=== PATIENT | female | born 1985 ===

== ENCOUNTER 2016-08-10 18:04 | Emergency (ER) | payer SELFPAY ==
[2016-05-18 12:00] VITALS: BMI 29.9
[2016-08-10 19:11] LABS: URINE BILIRUBIN NEGATIVE (NEGATIVE); URINE BLOOD NEGATIVE (NEGATIVE); URINE COLOR STRAW (YELLOW); URINE GLUCOSE (UA) NEG (Normal); URINE KETONE NEGATIVE (NEGATIVE); URINE LEUKOCYTE ESTERASE NEG Leu/uL (Negative); URINE PROTEIN NEGATIVE (NEGATIVE); URINE UROBILINOGEN 0.2-1.0 mg/dL (0.2-1.0); WBC URINE < 1 /hpf (0-5)
--- NOTE | 2016-08-10 19:38 | OBHP ---
Datetime: 08/10/2016 19:32 IP Adm Impression: Term, intrauterine IP Chief Complaint Other: urinary urgency IP Admit Plan: Observation/Evaluation; Discharge home Admit Comment, IP Provider: Patient is a @ 21 wks complaining of urinary frequency, no vagin al bleeding, no pain, +FM. Patient denies any medical problems, no allergies, no surgeries, no other issues. +FHR = 140s, no contractions on the monitor. Urine sent to pathology, shows no signs of urine infection. Will discharge patient, to follow up in clinic this week. Labor precautions given Pelvic Type - PN: Adequate Extremities - PN: Normal Abdomen - PN: Normal Back - PN: Normal Breast - PN: Normal Lungs - PN: Normal Heart - PN: Normal Thyroid - PN: Normal Neurologic - PN: Normal HEENT - PN: Normal General - PN: Normal FHR - Baseline A Provider: 140 Vital Signs Provider: Reviewed; Within Normal Limits NICHD Decel Fetus A IP Provider: None Genitourinary Exam: Normal DTRs - PN: Normal
== END 2016-08-10 23:00 | disposition home or self-care (01) ==
LOC: H.EROB2 18:04
DX: O99.89 Other specified diseases and conditions complicating pregnancy, childbirth and the puerperium (principal); R35.0 Frequency of micturition; Z3A.21 21 weeks gestation of pregnancy

== ENCOUNTER 2016-12-03 17:12 | Emergency (ER) | payer SELFPAY ==
[2016-12-03 21:57] VITALS: BMI 28.3
[2016-12-04 00:56] VITALS: BP 108/68; PULSE 74; O2SAT 99
== END 2016-12-03 20:15 | disposition home or self-care (01) ==
LOC: H.EROB2 17:12
DX: O26.93 Pregnancy related conditions, unspecified, third trimester (principal); Z3A.37 37 weeks gestation of pregnancy; Z04.3 Encounter for examination and observation following other accident; O47.1 False labor at or after 37 completed weeks of gestation; W10.9XXA Fall (on) (from) unspecified stairs and steps, initial encounter; Y93.9 Activity, unspecified

== ENCOUNTER 2016-12-13 09:23 | Emergency (ER) | payer SELFPAY ==
--- NOTE | 2016-12-13 10:35 | OBHP ---
Datetime: 12/13/2016 10:03 IP Adm Impression: Term, intrauterine ; No Active Labor; Missed IP Admit Plan: Observation/Evaluation; Discharge home Admit Comment, IP Provider: 30 y/o @ 38.6 weeks presents reporting decreased FM and vaginal spo tting. Pt reports being out late last night and upon waking up noticed decreased FM. Pt also reports an episode of vaginal spotting but it was darker blood and not fresh/bright red. No other complaints. Currently reports good fm. Denies LOF/CTX. ROS: negative PE: as above A/P: 30 @ 38.6 weeks IUP rule out labor -pt checked, currently 1/thick/high -reactive NST -kick counts reviewed -pt returning home with f/u appt on 12/[address] Bogdan Hanna pt seen and case discussed with Dr. Zeeshan Hanna MD PGY2 @ 10:15am Addendum by Dr. Byers: Patient evaluated with the resident and I agree with the above. The patient is a @ 38.6 wks, rule out labor. Patient has vaginal spotting, decreased movement, no contraction pain. HIO=904 mod karley, +accels, no decels, TOCO = ctxning q 2-8 mins. Patient 1/thick/hig h, not in active labor. FHR=reactive, will discharge home, labor precautions given Pelvic Type - PN: Adequate Extremities - PN: Normal Abdomen - PN: Normal Back - PN: Normal Breast - PN: Normal Lungs - PN: Normal Heart - PN: Normal Thyroid - PN: Normal Neurologic - PN: Normal HEENT - PN: Normal General - PN: Normal Presentation-Admit: Vertex FHR - Baseline A Provider: 130s IP Hx Assessment: The History has been Reviewed and is Current EGA AdmitDate IP: 38.6 Vital Signs Provider: Reviewed; Within Normal Limits IP Chief Complaint: Decreased movement NICHD Variability Prov Fetus A: Moderate 6-25bpm NICHD Accel Fetus A IP Provider: 15X15 FHR Category Provider Fetus A: Category I NICHD Decel Fetus A IP Provider: None Dilatation, Provider: 1 Effacement, Provider: thick Station, Provider: high Genitourinary Exam: Normal DTRs - PN: Normal Datetime: 12/03/2016 18:21 IP Chief Complaint Other: fell on her back Comments, ACOG Physical Exam: back: small contusion 3x3 lower back
--- NOTE | 2016-12-13 10:37 | OBDCSUM ---
Datetime: 12/13/2016 10:24 Discharged to, Provider: Home Follow up at, Provider: clinic Disch Instr Activity: Normal activity Disch Instr Diet: Regular Discharge Instructions, Provider: Routine instructions given Discharge Diagnosis, Provider: False Labor - Undelivered Discharge Time: 12/13/2016 10:35 Follow up in weeks, Provider: 1 day Disch Referrals: None Contraception discussed, Prov: Yes Disch Activity Restrictions: No lifting; No sexual activity; Nothing in vagina - [place], tampon s, douche
[2016-12-13 14:24] VITALS: BP 119/63; PULSE 57; RESP 18; TEMP 98.1
== END 2016-12-13 10:35 | disposition home or self-care (01) ==
LOC: H.EROB2 09:23 → H.L&D 10:18 → H.EROB2 10:35
DX: O47.1 False labor at or after 37 completed weeks of gestation (principal); Z3A.39 39 weeks gestation of pregnancy

== ENCOUNTER 2016-12-15 08:48 | Inpatient (IN) | payer MEDICAID, SELFPAY ==
[2016-12-15 09:06] VITALS: BMI 32.8
[2016-12-15] MEDS: Lactated Ringer's 1,000 ML IV SCH ×2 (09:25→10:25)
--- NOTE | 2016-12-15 09:36 | OBHP ---
Datetime: 12/15/2016 09:27 IP Adm Impression: Term, intrauterine ; No Active Labor IP Admit Plan: Observation/Evaluation Admit Comment, IP Provider: yo IUP at 39w c/cxt q10m for 4h. No SROM. no VB. +FM edc dec 21 care: [facility] - GBS Neg 1h GTT elevated; 3H negative PMH: denies PSH: denies NKA PSOH: denies msoking ETOH drugs POBGYNH: x 1 ( at 10yo of leukemia); spont ab x 1 A: IUP at 39w nonractive tracing PLAN: IVF observe Pelvic Type - PN: Adequate Extremities - PN: Normal Abdomen - PN: Normal Back - PN: Normal Breast - PN: Not Done Lungs - PN: Normal Heart - PN: Normal Thyroid - PN: Normal Neurologic - PN: Normal HEENT - PN: Normal General - PN: Normal Presentation-Admit: Vertex IP Fetus A Comments: Sono VTX FHR - Baseline A Provider: 140 Membranes, Provider: Intact Contraction Comments Provider: + Pool Provider: Negative EGA AdmitDate IP: 39.1 Vital Signs Provider: Reviewed; Within Normal Limits IP Chief Complaint: Uterine contractions NICHD Variability Prov Fetus A: Minimal - Undetectable to <5bpm NICHD Accel Fetus A IP Provider: 10X10 FHR Category Provider Fetus A: Category II NICHD Decel Fetus A IP Provider: None Dilatation, Provider: FT Effacement, Provider: long Station, Provider: high Genitourinary Exam: Normal DTRs - PN: Normal
--- NOTE | 2016-12-15 11:23 | OBADHP ---
Datetime: 12/15/2016 11:20 Admit Comment, IP Provider: luis IUP at 39w c/cxt q10m for 4h. No SROM. no VB. +FM...more ctx whiel ni L_D edc dec 21 care: [facility] - GBS Neg 1h GTT elevated; 3H negative PMH: denies PSH: denies NKA PSOH: denies msoking ETOH drugs POBGYNH: x 1 ( at 10yo of leukemia); spont ab x 1 A: IUP at 39w Active labor PLAN: Admit to L_D...pain managment, labor, delivery and discussed Pelvic Type - PN: Adequate Extremities - PN: Normal Abdomen - PN: Normal Back - PN: Normal Breast - PN: Not Done Lungs - PN: Normal Heart - PN: Normal Thyroid - PN: Normal Neurologic - PN: Normal HEENT - PN: Normal General - PN: Normal Presentation-Admit: Vertex FHR - Baseline A Provider: 130 Membranes, Provider: Intact Pool Provider: Negative IP Hx Assessment: The History has been Reviewed and is Current Vital Signs Provider: Reviewed; Within Normal Limits IP Chief Complaint: Uterine contractions NICHD Variability Prov Fetus A: Moderate 6-25bpm NICHD Accel Fetus A IP Provider: 15X15 FHR Category Provider Fetus A: Category I NICHD Decel Fetus A IP Provider: None Dilatation, Provider: 3 Effacement, Provider: 80 Station, Provider: --2 Genitourinary Exam: Normal DTRs - PN: Normal EGA AdmitDate IP: 39.1 IP Adm Impression: Term, intrauterine ; Active labor IP Admit Plan: Admit to unit; Initiate labor protocol Datetime: 12/15/2016 09:27 IP Fetus A Comments: Sono VTX Contraction Comments Provider: + Datetime: 12/03/2016 18:21 IP Chief Complaint Other: fell on her back Comments, ACOG Physical Exam: back: small contusion 3x3 lower back
[2016-12-15 11:52] LABS: HEMOGLOBIN 12.3 g/dL (12.0-16.0); MEAN CELL VOLUME 86.4 fl (81.0-99.0); MEAN CORPUSCULAR HEMOGLOBIN 28.5 pg (27.0-31.0); RBC 4.32 Mil/uL (3.80-5.20); RED CELL DISTRIBUTION WIDTH 15.4 % (11.5-14.5); WHITE BLOOD COUNT 12.7 K/uL (4.8-10.8)
--- NOTE | 2016-12-15 13:24 | OBPN ---
Datetime: 12/15/2016 13:14 IP Progress Impression: Normal progression of labor; Reassuring heart rate IP Informed Consent Obtain: Vaginal Delivery; Risks, Benefits and Alternatives Discussed IP Procedures: Artificial ROM IP Progress Plan: Continue present management; Augmentation Pool Provider: Positive Membranes, Provider: Ruptured Amniotic Fluid Color, Provider: Clear Contraction Comments Provider: 3-4m FHR - Baseline A Provider: 130 Presentation-Admit: Vertex IP Progress Note Comment: She feels CTX A: LAtent phase of labor PLAN: AROM clear fluid for augmentaiotn (discused with pt before AROM)..start Pitocin augmentatoin NICHD Accel Fetus A IP Provider: 15X15 FHR Category Provider Fetus A: Category I NICHD Variability Prov Fetus A: Moderate 6-25bpm Dilatation, Provider: 3 Effacement, Provider: 90 Station, Provider: -2 NICHD Decel Fetus A IP Provider: None Datetime: 12/15/2016 11:20 Vital Signs Provider: Reviewed; Within Normal Limits Datetime: 12/15/2016 09:27 IP Fetus A Comments: Sono VTX
[2016-12-15] MEDS ORDERED: Oxytocin 30 units/LR 500ML 30 U/500 ML BAG IV SCH ×3 (13:30→23:53)
[2016-12-15] MEDS ORDERED: Lactated Ringer's 1,000 ML IV SCH ×2 (15:00→16:00)
[2016-12-15] MEDS ORDERED: Bupivacaine HCl 0.25% PF (10 ml) Inj ONE (15:51)
[2016-12-15] MEDS ORDERED: Fentanyl/Bupivacaine HCl 250 ML EPI ONE (15:51)
[2016-12-15] MEDS ORDERED: ePHEDrine 50 mg/ml Inj ONE (16:15)
--- NOTE | 2016-12-15 17:31 | OBPN ---
Datetime: 12/15/2016 17:25 IP Progress Impression: Normal progression of labor; Reassuring heart rate IP Informed Consent Obtain: Vaginal Delivery; Risks, Benefits and Alternatives Discussed IP Progress Plan: Continue present management; Augmentation Pool Provider: Positive Membranes, Provider: Ruptured Amniotic Fluid Color, Provider: Clear Contraction Comments Provider: 2-4m FHR - Baseline A Provider: 130 Presentation-Admit: Vertex IP Progress Note Comment: She feels better after epidural arond 1h ago. She still feels leaking. A: Term latent of labor PLAN: Pitocin at 1miu/h NICHD Accel Fetus A IP Provider: 15X15 FHR Category Provider Fetus A: Category I NICHD Variability Prov Fetus A: Moderate 6-25bpm Dilatation, Provider: 5 Effacement, Provider: 90 Station, Provider: -2 NICHD Decel Fetus A IP Provider: None
--- NOTE | 2016-12-15 18:36 | OBPN ---
Datetime: 12/15/2016 18:31 IP Progress Impression: Normal progression of labor; Reassuring heart rate IP Informed Consent Obtain: Vaginal Delivery; Risks, Benefits and Alternatives Discussed IP Progress Plan: Continue present management Pool Provider: Positive Membranes, Provider: Ruptured Contraction Comments Provider: 5m FHR - Baseline A Provider: 130 Presentation-Admit: Vertex IP Progress Note Comment: She had decel 17:50pm and Pitocin shut off...FHR improved. on O2 A: Active phase of labor PLAN: Observe progress NICHD Accel Fetus A IP Provider: 15X15 FHR Category Provider Fetus A: Category II NICHD Variability Prov Fetus A: Moderate 6-25bpm Dilatation, Provider: 9 Effacement, Provider: 100 Station, Provider: 0 NICHD Decel Fetus A IP Provider: Variable
--- NOTE | 2016-12-15 22:11 | OBPN ---
Datetime: 12/15/2016 22:05 IP Progress Impression: Normal progression of labor; Reassuring heart rate IP Informed Consent Obtain: Vaginal Delivery; Risks, Benefits and Alternatives Discussed IP Progress Plan: Continue present management Pool Provider: Positive Membranes, Provider: Ruptured Contraction Comments Provider: 2-4m FHR - Baseline A Provider: 150 Presentation-Admit: Vertex IP Progress Note Comment: Notified thatshe was fullyt dilate 21:00pm. She started topush with epidu ral on...then it was shut off. Second stage of labor anticipate Pitocin at 8miu/h NICHD Accel Fetus A IP Provider: 10X10 FHR Category Provider Fetus A: Category II NICHD Variability Prov Fetus A: Moderate 6-25bpm Dilatation, Provider: 10 Effacement, Provider: 100 Station, Provider: 0 NICHD Decel Fetus A IP Provider: Variable
[2016-12-15] MEDS ORDERED: Oxycodone/Acetaminophen 5/325 mg Tab PO PRN ×2 (23:53)
[2016-12-15] MEDS ORDERED: Benzocaine/Menthol SPRAY TOP PRN (23:53)
[2016-12-16] MEDS ORDERED: Oxycodone/Acetaminophen 5/325 mg Tab PO PRN ×2 (01:30)
[2016-12-16] MEDS ORDERED: Benzocaine/Menthol SPRAY TOP PRN (01:30)
[2016-12-16 09:55] LABS: HEMOGLOBIN 10.8 g/dL (12.0-16.0); MEAN CELL VOLUME 86.5 fl (81.0-99.0); MEAN CORPUSCULAR HEMOGLOBIN 28.5 pg (27.0-31.0); MEAN CORPUSCULAR HGB CONC 32.9 g/dL (33.0-37.0); RBC 3.78 Mil/uL (3.80-5.20); RED CELL DISTRIBUTION WIDTH 15.5 % (11.5-14.5)
--- NOTE | 2016-12-17 09:21 | OBPPN ---
Datetime: 12/17/2016 02:51 PP Pain Prov: Within normal limits PP Nausea Prov: Denies PP Flatus Prov: Yes PP BM Prov: No PP Heart Prov: Normal PP Lungs Prov: Normal PP Abdomen/Uterus Prov: Normal PP Lochia Prov: Normal PP Vulva/Perineum Prov: Normal PP CVA Tenderness Prov: Normal PP Extremities Prov: Normal PP Progress Prov: Normal PP Impression Prov: Normal progression PP Plan Prov: Discharge IP PP Procedures: None Vital Signs Provider PP: Reviewed; Within Normal Limits Datetime: 12/16/2016 07:25 PP C/S Incision Prov: Normal PP Progress Note Prov: S: 30 yo s/p NVD on 12/15/16 at 11:36pm. Pt. is seen and examined at [facility] this AM. No overnight events. Pt reports occasional abdominal pain, but well controlled with pain meds. Pt is ambulating without any difficulties. Breast feeding baby. Tolerating PO diet. Lochia is similar to light menses in volume. Voiding freely, no Bowel movement, but passing gas per rectum. Den ies fever/chills, diarrhea, nausea/vomiting, chest pain, dyspnea, and dizziness. Of note, O: VS: stable GEN: NAD Cardio: s1s2, no M/G/R Resp: clear breath sounds b/l Abdomen: BS+, NT, Uterus is firm and at the level of the umbilicus. EXT: No edema, calves nontender NEURO/PSYCHI: AAOx3, no grossly focal deficit, preserved affect and mood. Assessment/Plan30 yo s/p NVD on 12/15/16 at 11:36pm. Pt remains afebrile, tolerating pain with medication, tolerating PO intake, doing well on PPD#1. OOB with caution SCDs for DVT prophylaxis, pt ambulating Percocet 5/325mg, and Ibuprofen 600mg for pain. Colace 100mg PO BID for constipation Encourage and ambulating f/u CBC post-delivery --- Jose Raul Guillory, PGY-1 obh addendm agree with above assessmetn and plan
[2016-12-17 23:20] VITALS: BP 98/66; PULSE 63; RESP 20; TEMP 98; O2SAT 98
== END 2016-12-17 15:00 | disposition home or self-care (01) | DRG 775 ==
LOC: H.EROB2 08:48 → H.L&D 11:17 → H.OB/GYN 12-16 01:30
PROVIDERS: ADMIT Obstetrics & Gynecology; ATTEND Obstetrics & Gynecology
PROC: 0HQ9XZZ Repair Perineum Skin, External Approach (ICD-10-PCS; principal; 2016-12-15)
PROC: 10E0XZZ Delivery of Products of Conception, External Approach (ICD-10-PCS; 2016-12-15)
PROC: 4A1HXCZ Monitoring of Products of Conception, Cardiac Rate, External Approach (ICD-10-PCS; 2016-12-15)
DX: O70.0 First degree perineal laceration during delivery (principal); O69.81X0 Labor and delivery complicated by cord around neck, without compression, not applicable or unspecified; Z37.0 Single live birth; Z3A.39 39 weeks gestation of pregnancy; Z85.6 Personal history of leukemia

== ENCOUNTER 2016-12-29 15:15 | Emergency (ER) | payer SELFPAY ==
[2016-12-29 15:15] VITALS: BMI 32.8
[2016-12-29 15:37] VITALS: BP 95/65; PULSE 77; RESP 18; TEMP 98.1; O2SAT 97
--- NOTE | 2016-12-29 16:12 | ED PDOC ---
HPI: Female Pain Time Seen by Provider: 12/29/16 15:20 Chief Complaint (Nursing): Female Genitourinary Chief Complaint (Provider): Female Genitourinary History Per: Patient History/Exam Limitations: no limitations Onset/Duration Of Symptoms: Days (x 2) Current Symptoms Are (Timing): Still Present Quality Of Discomfort: Other Alleviating Factors: OTC Meds Additional Complaint(s): Lotus is a 31 y/o female who presents to the ED complaining of dyrusia for the past 2 days. Denies fever, vomiting, and diarrhea. Patient has no past medical problems and reports giving 2 weeks ago via normal spontaneous vaginal delivery. PMD: Cali Hanna Past Medical History Reviewed: Historical Data, Nursing Documentation, Vital Signs Vital Signs: Last Vital Signs Temp 98.1 F 12/29/16 15:35 Pulse 77 12/29/16 15:35 Resp 18 12/29/16 15:35 BP 95/65 L 12/29/16 15:35 Pulse Ox 97 12/29/16 15:35 - Medical History PMH: No Chronic Diseases Denies: Depression, Diabetes, HTN - Surgical History Surgical History: No Surg Hx - Family History Family History: States: Unknown Family Hx - Social History Current smoker - smoking cessation education provided: No Alcohol: None Drugs: Denies - Home Medications Home Medications: Ambulatory Orders Medication Instructions Recorded Vit Calc,Iron,Folic 1 each PO DAILY 12/15/16 [ Vitamins] Docusate Sodium/Sennosides A 1 tab PO HS #30 tab 12/17/16 [Senokot S 50 MG-8.6 MG] Ibuprofen [Motrin Tab] 600 mg PO Q6 PRN #30 tab 12/17/16 Nitrofurantoin Macrocrystals 100 mg PO BID #14 cap 12/29/16 [Macrobid] - Allergies Allergies/Adverse Reactions: Allergies Allergy/AdvReac Type Severity Reaction Status Date / Time No Known Allergies Allergy Verified 12/15/16 19:49 Review of Systems ROS Statement: Except As Marked, All Systems Reviewed And Found Negative Constitutional: Negative for: Fever Gastrointestinal: Negative for: Vomiting, Diarrhea Genitourinary Female: Positive for: Dysuria Physical Exam - Reviewed Nursing Documentation Reviewed: Yes Vital Signs Reviewed: Yes - Physical Exam Appears: Positive for: Non-toxic, No Acute Distress Head Exam: Positive for: ATRAUMATIC, NORMAL INSPECTION, NORMOCEPHALIC Skin: Positive for: Normal Color, Warm, Dry. Negative for: Rash Eye Exam: Positive for: EOMI Cardiovascular/Chest: Positive for: Regular Rate, Rhythm. Negative for: Murmur Respiratory: Positive for: Normal Breath Sounds. Negative for: Accessory Muscle Use, Respiratory Distress Gastrointestinal/Abdominal: Positive for: Normal Exam, Soft. Negative for: Tenderness Extremity: Positive for: Normal ROM Neurologic/Psych: Positive for: Alert, Oriented - ECG O2 Sat by Pulse Oximetry: 97 (RA) Pulse Ox Interpretation: Normal Medical Decision Making Medical Decision Making: Time: 16:07 Impression: dysuria R/o UTI Initial Plan: --Urinalysis --Urine C&S --Pending reevaluation and disposition Time: 16:13 --Urine dip positive for UTI rx macrobid Clinical Impression: UTI Upon provider reevaluation patient is medically stable, and requires no further treatment in the ED at this time. Patient will be discharged with Rx for Macrobid. Counseling was provided and all questions were answered regarding diagnosis and need for follow up with PMD in 1-2 days. There is agreement to discharge plan. Return if symptoms persist or worsen. Scribe Attestation: Documented by Roseanne Wallace, acting as a scribe for Abby Carmona MD Provider Scribe Attestation: All medical record entries made by the Scribe were at my direction and personally dictated by me. I have reviewed the chart and agree that the record accurately reflects my personal performance of the history, physical exam, medical decision making, and the department course for this patient. I have also personally directed, reviewed, and agree with the discharge instructions and disposition. Disposition - Clinical Impression Clinical Impression: Female genitourinary symptoms, UTI (urinary tract infection) - Patient ED Disposition Is Patient to be Admitted: No Counseled Patient/Family Regarding: Studies Performed, Diagnosis, Need For Followup, Rx Given - Disposition Referrals: [facility] [Outside] [facility] [Outside] Disposition: Routine/Home Disposition Time: 16:10 Condition: IMPROVED Additional Instructions: follow up with your primary doctor in 1-2 days return to ED with any worsening or concerning symptoms Prescriptions: Nitrofurantoin Macrocrystals [Macrobid] 100 mg PO BID #14 cap Instructions: Urinary Tract Infection in Women (ED) Forms: [employer] Connect (Lithuanian) Print Language: PERUVIAN
[2016-12-29 16:34] LABS: RBC URINE 6 /hpf (0-3); URINE BACTERIA RARE (<OCC); URINE BILIRUBIN NEGATIVE (NEGATIVE); URINE BLOOD MODERATE (NEGATIVE); URINE COLOR YELLOW (YELLOW); URINE GLUCOSE (UA) NEG (Normal); URINE KETONE NEGATIVE (NEGATIVE); URINE LEUKOCYTE ESTERASE LARGE Leu/uL (Negative); URINE PROTEIN NEGATIVE (NEGATIVE); URINE UROBILINOGEN 0.2-1.0 mg/dL (0.2-1.0); WBC URINE 24 /hpf (0-5)
== END 2016-12-29 16:47 | disposition home or self-care (01) ==
LOC: H.ER 15:15
DX: N39.0 Urinary tract infection, site not specified (principal)

== ENCOUNTER 2017-01-28 11:52 | Emergency (ER) | payer MEDICAID, OTHER ==
[2017-01-28 11:52] VITALS: BMI 32.8
[2017-01-28 12:17] VITALS: BP 108/63; PULSE 68; RESP 16; TEMP 96.4; O2SAT 97
--- NOTE | 2017-01-28 12:25 | ED PDOC ---
HPI: Skin/Bite Injury Time Seen by Provider: 01/28/17 12:16 Chief Complaint (Nursing): Bite Chief Complaint (Provider): Animal bite History/Exam Limitations: no limitations Onset/Duration Of Symptoms: Hrs Additional Complaint(s): Patient is a 31 y/o female with no significant past medical history presenting to the emergency department for an animal bite that occurred one hour ago. Reports that her right index finger on her left hand by a rat. Of note, patient wants to know if she can PCP: none provided. Past Medical History Vital Signs: Last Vital Signs Temp 96.4 F L 01/28/17 12:13 Pulse 68 01/28/17 12:13 Resp 16 01/28/17 12:13 BP 108/63 01/28/17 12:13 Pulse Ox 97 01/28/17 12:13 - Medical History PMH: Denies: Depression, Diabetes, HTN - Family History Family History: States: Unknown Family Hx - Home Medications Home Medications: Ambulatory Orders Medication Instructions Recorded Vit Calc,Iron,Folic 1 each PO DAILY 12/15/16 [ Vitamins] Docusate Sodium/Sennosides A 1 tab PO HS #30 tab 12/17/16 [Senokot S 50 MG-8.6 MG] Ibuprofen [Motrin Tab] 600 mg PO Q6 PRN #30 tab 12/17/16 Nitrofurantoin Macrocrystals 100 mg PO BID #14 cap 12/29/16 [Macrobid] - Allergies Allergies/Adverse Reactions: Allergies Allergy/AdvReac Type Severity Reaction Status Date / Time No Known Allergies Allergy Verified 12/15/16 19:49 - ECG O2 Sat by Pulse Oximetry: 97 Disposition - Disposition
--- NOTE | 2017-01-28 12:26 | ED PDOC ---
HPI: General Adult Time Seen by Provider: 01/28/17 12:16 Chief Complaint (Nursing): Bite Chief Complaint (Provider): possible rat bite History Per: Patient Onset/Duration Of Symptoms: Hrs Additional Complaint(s): Patient is a 31 y/o female with no significant past medical history presenting to the emergency department for a possible animal bite that occurred one hour ago. Reports that her right index finger was grazed by the teeth of a rat at home. No open wound or bleeding noted. Patient was concerned about whether to continue breast feeding her 1 month old child. Tetanus is up to date. PCP: none provided. Past Medical History Reviewed: Historical Data, Nursing Documentation, Vital Signs Vital Signs: Last Vital Signs Temp 96.4 F L 01/28/17 12:13 Pulse 68 01/28/17 12:13 Resp 16 01/28/17 12:13 BP 108/63 01/28/17 12:13 Pulse Ox 97 01/28/17 12:36 - Medical History PMH: No Chronic Diseases - Surgical History Surgical History: No Surg Hx - Family History Family History: States: No Known Family Hx - Living Arrangements Living Arrangements: With Family - Social History Current smoker - smoking cessation education provided: No Alcohol: None Drugs: Denies - Immunization History Hx Tetanus Toxoid Vaccination: Yes - Home Medications Home Medications: Ambulatory Orders Medication Instructions Recorded Vit Calc,Iron,Folic 1 each PO DAILY 12/15/16 [ Vitamins] Docusate Sodium/Sennosides A 1 tab PO HS #30 tab 12/17/16 [Senokot S 50 MG-8.6 MG] Ibuprofen [Motrin Tab] 600 mg PO Q6 PRN #30 tab 12/17/16 Nitrofurantoin Macrocrystals 100 mg PO BID #14 cap 12/29/16 [Macrobid] - Allergies Allergies/Adverse Reactions: Allergies Allergy/AdvReac Type Severity Reaction Status Date / Time No Known Allergies Allergy Verified 12/15/16 19:49 Review of Systems ROS Statement: Except As Marked, All Systems Reviewed And Found Negative Constitutional: Negative for: Fever Skin: Positive for: Other (No bleeding or skin breakage on right index finger) Physical Exam - Reviewed Nursing Documentation Reviewed: Yes Vital Signs Reviewed: Yes - Physical Exam Appears: Positive for: Well, Non-toxic, No Acute Distress Skin: Positive for: Normal Color. Negative for: Rash Eye Exam: Positive for: Normal appearance Extremity: Positive for: Normal ROM, Other (No active bleeding or open wound on right index finger) Neurologic/Psych: Positive for: Alert, Oriented (x3) - ECG O2 Sat by Pulse Oximetry: 97 (RA) Pulse Ox Interpretation: Normal Medical Decision Making Medical Decision Making: Time: 12:25 Initial impression: Rat exposure No open noted to affected digit. Patient was counseled to continue breast feeding and to follow up with her primary doctor. Patient is stable for discharge. Scribe Attestation: Documented by Smitha Sánchez, acting as a scribe for CHUY Wang. Provider Scribe Attestation: All medical record entries made by the Scribe were at my direction and personally dictated by me. I have reviewed the chart and agree that the record accurately reflects my personal performance of the history, physical exam, medical decision making, and the department course for this patient. I have also personally directed, reviewed, and agree with the discharge instructions and disposition. Disposition - Clinical Impression Clinical Impression: Normal exam - Patient ED Disposition Is Patient to be Admitted: No Counseled Patient/Family Regarding: Diagnosis, Need For Followup - Disposition Referrals: [facility] [Outside] Disposition: Routine/Home Disposition Time: 12:25 Condition: STABLE Additional Instructions: You are able to continue breast feeding. Follow up as needed with primary care doctor or clinic. Instructions: Normal Exam (ED) Forms: [employer] (Tanzanian) Print Language: GUYANESE
== END 2017-01-28 14:09 | disposition home or self-care (01) ==
LOC: H.ER 11:52
DX: T14.8 Other injury of unspecified body region (principal); W53.11XA Bitten by rat, initial encounter; Y92.89 Other specified places as the place of occurrence of the external cause

== ENCOUNTER 2018-08-19 19:01 | Inpatient (IN) | payer MEDICAID ==
[2018-08-19 20:19] VITALS: BMI 33.9
[2018-08-19] MEDS ORDERED: Oxytocin 30 UNIT in NS 500 ml 30 UNITS/500 ML BAG IV ONE ×3 (20:25→22:30)
[2018-08-19] MEDS ORDERED: Lactated Ringer's 1,000 ML IV ONE (20:25)
[2018-08-19 20:28] LABS: HEMOGLOBIN 10.8 g/dL (12.0-16.0); MEAN CELL VOLUME 82.8 fl (81.0-99.0); MEAN CORPUSCULAR HEMOGLOBIN 28.1 pg (27.0-31.0); MEAN CORPUSCULAR HGB CONC 33.9 g/dL (33.0-37.0); RBC 3.85 Mil/uL (3.80-5.20); RED CELL DISTRIBUTION WIDTH 15.3 % (11.5-14.5); WHITE BLOOD COUNT 9.1 K/uL (4.8-10.8)
[2018-08-19] MEDS ORDERED: Fentanyl/Bupivacaine HCl 250 ML EPI ONE (21:06)
[2018-08-19] MEDS ORDERED: Bupivacaine HCl 0.5% PF (30 ml) Inj ONE (21:06)
--- NOTE | 2018-08-19 21:15 | OBADHP ---
Datetime: 08/19/2018 19:30 Admit Comment, IP Provider: 32yo , with 2 previous @ 41 weeks reports here complaining of ut erine contractions since the morning but which intensified this evening. She denies any vaginal bleed ing or leakage of fluid. She was scheduled for an elective IOL today. OBHX: , X2, Uncomplicated course at the [facility] PMhx; None of Significance. Allergies: NKDA Social HX; No Toxic Habits. O; Afebrile Heart: RRR Chest: CTA B/L Abd: Soft, NT, BS- present FHR- Category 1 TOCO; Q 3-4 SVE: /-3 Assessment: IUP at 41 weeks in Labor Reassuring Maternal Status; Plan: Admit to labor and delivery Monitor the progress of labor. Pelvic Type - PN: Adequate Extremities - PN: Normal Abdomen - PN: Normal Back - PN: Normal Breast - PN: Normal Lungs - PN: Normal Heart - PN: Normal Thyroid - PN: Normal Neurologic - PN: Normal HEENT - PN: Normal General - PN: Normal Presentation-Admit: Vertex FHR - Baseline A Provider: 150 Membranes, Provider: Intact Contraction Comments Provider: irregular Gestation - Est Wks by US: 41.0 IP Chief Complaint: Uterine contractions; Maternal discomfort NICHD Variability Prov Fetus A: Moderate 6-25bpm NICHD Accel Fetus A IP Provider: 15X15 FHR Category Provider Fetus A: Category I NICHD Decel Fetus A IP Provider: None Dilatation, Provider: 4 Effacement, Provider: 80 Station, Provider: -3 Genitourinary Exam: Normal DTRs - PN: Normal IP Adm Impression: Term, intrauterine ; Active labor; Intact Membranes IP Admit Plan: Admit to unit; Initiate labor protocol
[2018-08-19] MEDS: Lactated Ringer's 1,000 ML IV SCH (21:45)
[2018-08-19] MEDS ORDERED: OXYTOCIN/0.9 % NS 20 UNIT/1,000 ML BAG IV SCH (21:45)
[2018-08-20] MEDS ORDERED: Oxycodone/Acetaminophen 5/325 mg Tab PO PRN ×4 (02:57→04:58)
[2018-08-20] MEDS ORDERED: Benzocaine/Menthol SPRAY TOP PRN ×2 (02:57→04:58)
[2018-08-20] MEDS: Lactated Ringer's 1,000 ML IV SCH (04:57)
[2018-08-20 12:46] LABS: HEMOGLOBIN 10.2 g/dL (12.0-16.0); MEAN CELL VOLUME 83.8 fl (81.0-99.0); MEAN CORPUSCULAR HEMOGLOBIN 28.3 pg (27.0-31.0); MEAN CORPUSCULAR HGB CONC 33.8 g/dL (33.0-37.0); RBC 3.6 Mil/uL (3.80-5.20); WHITE BLOOD COUNT 10.8 K/uL (4.8-10.8)
[2018-08-21 06:14] LABS: MEAN CELL VOLUME 84.2 fl (81.0-99.0); MEAN CORPUSCULAR HEMOGLOBIN 28.6 pg (27.0-31.0); MEAN CORPUSCULAR HGB CONC 33.9 g/dL (33.0-37.0); RBC 3.52 Mil/uL (3.80-5.20); RED CELL DISTRIBUTION WIDTH 15.6 % (11.5-14.5); WHITE BLOOD COUNT 8.8 K/uL (4.8-10.8)
--- NOTE | 2018-08-21 09:06 | OBPPN ---
Datetime: 08/21/2018 08:06 PP Pain Prov: Within normal limits PP Nausea Prov: Denies PP Flatus Prov: Yes PP BM Prov: No PP Breasts Prov: Not Done PP Heart Prov: Normal PP Lungs Prov: Normal PP Abdomen/Uterus Prov: Normal PP Lochia Prov: Normal PP Vulva/Perineum Prov: Not Done PP CVA Tenderness Prov: Not Done PP Extremities Prov: Normal PP C/S Incision Prov: Not Applicable PP Progress Prov: Normal PP Impression Prov: Normal progression PP Plan Prov: Continue present management PP Progress Note Prov: 32 YO , PPD 1 s/p at 41.0 EGA. Seen and examined at bedside this mor lilian. Pt has no Complains, Patient reports that pain is controlled with medication. Patient ambulate w/o difficulties. Currently Breast and bottle feeding, tolerating regular diet. Lochia less than men ses in volume. +Flatus, -BM. Denies fevers, chills, dizziness, chest pain, SOB, N/V/D, hematuria or d ysuria. aCBC: 10.8/31.9 pCBC: 10.0/29.6 VS: wnl Gen: NAD HEENT: NCAT Cardio: RRR, S1S2 present, no murmurs noted. Lungs: CTA B/L, no wheezes, rales or rhonchi Abd: soft, appropriate tenderness to palpation, Uterus firm at level of umbilicus Ext: No edema, Bell's negative NEURO/PSYCH: AAOx3, no grossly focal deficits, preserved affect and mood A/P 32 YO , PPD 1 s/p at 41.0 EGA., with normal progression. Plan: - and ambulation encouraged. -Ibuprofen 600 mg 1 tab Q 6h PRN mild pain - Discharge plan for 08/22 with follow up in 1 month at [facility] Case discussed with attending MD Byron PGY1 Attending Note; Patient was seen and discussed with the resident and I agree with tghe above. IP PP Procedures: None Vital Signs Provider PP: Reviewed
[2018-08-22] MEDS ORDERED: Measles, Mumps, and Rubella 0.5 ML VIAL SC ONE (08:47)
--- NOTE | 2018-08-22 08:59 | OBPPN ---
Datetime: 08/22/2018 07:48 PP Pain Prov: Within normal limits PP Nausea Prov: Denies PP Flatus Prov: Yes PP BM Prov: Yes PP Breasts Prov: Not Done PP Heart Prov: Normal PP Lungs Prov: Normal PP Abdomen/Uterus Prov: Normal PP Lochia Prov: Not Done PP Vulva/Perineum Prov: Not Done PP Extremities Prov: Normal PP Comments Phys Exam Prov: see progress note PP Impression Prov: Normal progression PP Plan Prov: Continue present management; Discharge PP Progress Note Prov: 32 YO , PPD 2 s/p at 41.0 EGA. Seen and examined at bedside this AM. Pt has no Complains, Patient reports that pain is controlled with medication. Patient ambulate w/o d ifficulties. Currently Breast and bottle feeding, tolerating regular diet. Lochia less than menses i n volume. +Flatus, +BM. Denies fevers, chills, dizziness, chest pain, SOB, N/V/D, hematuria or dysuri a. aCBC: 10.8/31.9 pCBC: 10.0/29.6 VS: wnl Gen: NAD HEENT: NCAT Cardio: RRR, S1S2 present, no murmurs noted. Lungs: CTA B/L, no wheezes, rales or rhonchi Abd: soft, appropriate tenderness to palpation, Uterus firm at level of umbilicus Ext: No edema, Bell's negative NEURO/PSYCH: AAOx3, no grossly focal deficits, preserved affect and mood A/P 32 YO , PPD 2 s/p at 41.0 EGA., with normal progression. Patient is clear for DC home today. Plan: - and ambulation encouraged. -Ibuprofen 600 mg 1 tab Q 6h PRN mild pain - Discharge plan for today with follow up in [address] [facility] Case discussed with attending MD Keyana PGY1 Attending addendum: I saw and examined the patient at bedside myself this morning. I reviewed the resident note above and agree with findings and management. Patient to be DC home today. Viry Jack MD Vital Signs Provider PP: Reviewed; Within Normal Limits
--- NOTE | 2018-08-22 08:59 | OBDCSUM ---
Datetime: 08/22/2018 07:55 Discharged to, Provider: Home Follow up at, Provider: [facility] Disch Instr Activity: Normal activity Disch Instr Diet: Regular Discharge Instructions, Provider: Routine instructions given Discharge Diagnosis, Provider: Term Delivered Follow up in weeks, Provider: 4-6 weeks Contraception discussed, Prov: Yes Disch Activity Restrictions: No lifting; Minimize stair-climbing; Nothing in vagina - [employer], t ampmedardo woodruff Discharge Comment, Provider: 32 YO S/P NVD at 41.0 wk GA, had baby girl on 08/20/18. : Male, Wt. 3240 gm, 9/9 Post- D/C Summary: 32 YO S/P NVD on 08/20/18 at 39.4 wk GA. Intrapartum: EBL 50 ml. No c omplications during post- period, today on her day 2 PPD with normal progression . Lo aggie is less than menses. Pt able to pass flatus, has passed a bowel movement. Voiding well and able to ambulate without difficulty. Tolerating regular diet w/o N/V. Fundus firm below umbilicus level. P t is hemodynamically stable. H/H: 10.0/29.6 Discharge Instructions given to patient: Encourage PNV 1 tab po q/day Ibuprofen 400 mg 1 tab po prn q4-6 if moderate pain. Ambulatory with caution, nothing per vagina/sex for 4 weeks, no heavy lifting, avoid stairs, if ex cessive bleeding or fever without relief from Tylenol go to ED ED precautions: If excessive bleeding, pain that does not get relief, fever >100.4, palpitations, SOB, CP or other concerning symptom go to the ED. PT was urged if feeling sad, mood swing, depression, neglect of baby, suicidal thoughts, homicidal thoughts go to ER or call 911 for help Follow-up with [facility] clinic in 4 weeks for post- check. Attending addendum: I saw and examined the patient at bedside myself this morning. I reviewed the resident note above and agree with findings and management. Patient to be DC home today. Viry Jack MD Contraception after Delivery: Undecided
[2018-08-22 18:43] VITALS: BP 117/74; PULSE 57; RESP 18; TEMP 98.7; O2SAT 98
== END 2018-08-22 13:15 | disposition home or self-care (01) | DRG 560 ==
LOC: H.L&D 20:25 → H.OB/GYN 08-20 04:45
PROVIDERS: ADMIT Obstetrics & Gynecology; ATTEND Obstetrics & Gynecology
PROC: 4A1HXCZ Monitoring of Products of Conception, Cardiac Rate, External Approach (ICD-10-PCS; 2018-08-19)
PROC: 10E0XZZ Delivery of Products of Conception, External Approach (ICD-10-PCS; principal; 2018-08-20)
DX: O48.0 Post-term pregnancy (principal); Z37.0 Single live birth; Z3A.41 41 weeks gestation of pregnancy